=== PATIENT | female | born 1975 | race Caucasian/White ===

== ENCOUNTER 2016-12-27 14:45 | Inpatient (IN) | payer OTHER ==
[~2016-12-27] VITALS: Ht 162.6 cm; Wt 92.7 kg
--- NOTE | ~2016-12-27 | P ---
[facility] [place] [address] [place] [address] PROCEDURE REPORT Name: CECILIA EASON Room #: 210-P [facility] IN M.R.#: [id number] Admission: 12/27/16 Attend Phys: Theodore Chong DO Discharge: 12/30/16 Date of : 79 Report #: [id number] THIS REPORT FOR: //name// CC: Theodore Madsen DATE OF SERVICE: 12/30/2016 PROCEDURE PERFORMED: Colonoscopy with biopsies. HISTORY OF PRESENT ILLNESS: The patient is a 41-year-old female with a history of vulvar cancer, is undergoing radiation therapy and chemotherapy with recent nausea, vomiting and diarrhea. Upper endoscopy was just performed, which showed grade A erosive esophagitis and gastritis with several erosions. Biopsies were obtained. Plan is for colonoscopy. DESCRIPTION OF PROCEDURE: The risks and benefits of the procedure were explained to the patient, those risks including but not limited to bleeding, perforation and the risk of sedation. She understood these risks and gave informed consent. Sedation was given using propofol per anesthesia. Next, a digital rectal exam was initially performed, which showed external hemorrhoids and some perianal skin excoriation, otherwise normal. Next, using a standard [employer] colonoscope, the scope was placed in the patient's anus and advanced under direct vision to the cecum. The overall prep was good. The cecum and ileocecal valve were normal in appearance. Ascending, transverse, descending and sigmoid colon were all normal. Random biopsies were obtained to rule out the possibility of microscopic colitis. The rectal mucosa was normal. On retroflexion, small nonbleeding internal hemorrhoids were noted. At this point, the scope was then withdrawn, and the procedure was terminated. The patient tolerated the procedure well. IMPRESSION: 1. Internal and external hemorrhoids. 2. Otherwise, normal colonoscopy. RECOMMENDATIONS: 1. Await biopsy results. 2. We will advance diet. 3. Continue supportive care. 4. We will add probiotics at this time. [facility] [address] [place] [address] PROCEDURE REPORT Name: CECILIA EASON Room #: 210-P [facility] IN M.R.#: [id number] Admission: 12/27/16 Attend Phys: Theodore Chong DO Discharge: 12/30/16 Date of : 79 Report #: [id number] Thank you for allowing me to participate in her care. By: 1532 2216 Reg Willis MD /nt
--- NOTE | ~2016-12-27 | 2DMMODE ---
[facility] [place] [place] [address] [place] [address] 2 D/M-MODE ECHOCARDIOGRAM Name: CECILIA EASON Room #: 210-P ADM IN M.R.#: [id number] Admission: 12/27/16 Attend Phys: Theodore Chong, Discharge: Date of : 79 Date of Service: 12/28/16 1425 Report #: [id number] THIS REPORT FOR: //name// APPROVED REPORT Study performed: 12/28/2016 12:51:21 EXAM: Comprehensive 2D, Doppler, and color-flow Echocardiogram Patient Location: Bedside Room #: 210 Status: routine BSA: 1.99 HR: 104 bpm BP: 171/86 mmHg Rhythm: Tachycardia Other Information Study Quality: Good Indications Edema, HTN, tachycardia.Hx: DM 2D Dimensions RVDd: 36.14 mm LVEF(%): 70.86 (>50%) IVSd: 12.31 (7-11mm) LVOT Diam: 21.48 (18-24mm) LVDd: 44.43 mm PWd: 10.34 (7-11mm) LVDs: 26.65 (25-40mm) Aortic Root: 27.15 mm Norman's LVEF: 70.86 % Volumes Left Atrial Volume (Systole) Single Plane 4CH: 41.20 mL Single Plane 2CH: 51.37 mL LA ESV Index: 25.00 mL/m2 Aortic Valve AoV Peak Jorge.: 1.43 m/s AO Peak Gr.: 8.22 mmHg LVOT Max P.50 mmHg LVOT Max V: 1.17 m/s HARLEY Vmax: 2.96 cm2 Mitral Valve E/A Ratio: 1.4 MV Decel. Time: 153.[address] [facility] [place] [place] [address] [place] [address] 2 D/M-MODE ECHOCARDIOGRAM Name: CECILIA EASON Room #: 210-[facility] IN ..#: [id number] Admission: 12/27/16 Attend Phys: Theodore Chong, Discharge: Date of : 79 Date of Service: 12/28/16 1425 Report #: [id number] MV E Max Jorge.: 1.49 m/s MV A Jorge.: 1.09 m/s MV PHT: 44.48 ms IVRT: 69.20 ms Pulmonary Valve PV Peak Jorge.: 1.73 m/s PV Peak Gr.: 11.99 mmHg Pulmonary Vein P Vein S: 0.90 m/s P Vein D: 0.51 m/s P Vein S/D Ratio: 1.76 Tricuspid Valve RAP Estimate: 10.00 mmHg Left Ventricle The left ventricle is normal size. Mild concentric left ventricular hypertrophy. The left ventricular systolic function is normal. LVEF is 55-60%. The left ventricular diastolic function is normal. Right Ventricle The right ventricle is normal size. The right ventricular systolic function is normal. Atria The left atrium size is normal. The right atrium size is normal. Aortic Valve The aortic valve is normal in structure. No aortic regurgitation is present. There is no aortic valvular stenosis. Mitral Valve The mitral valve is normal in structure. Trace mitral regurgitation. No evidence of mitral valve stenosis. Tricuspid Valve The tricuspid valve is normal in structure. There is no tricuspid valve regurgitation noted. Pulmonic Valve The pulmonary valve is normal in structure. There is no pulmonic valvular regurgitation. [employer] [facility] [place] [place] [address] [place] [address] 2 D/M-MODE ECHOCARDIOGRAM Name: CECILIA EASON Room #: 210-P ADM IN M.R.#: [id number] Admission: 12/27/16 Attend Phys: Theodore Chong, Discharge: Date of : 79 Date of Service: 12/28/16 1425 Report #: [id number] The aortic root is normal in size. The ascending aorta is normal in size. IVC is normal in size and collapses <50% with inspiration. Pericardium Hemodynamically insignificant pericardial effusion noted. <Conclusion> The left ventricle is normal size. LVEF is 55-60%. The aortic valve is normal in structure. The mitral valve is normal in structure. Trace mitral regurgitation. The tricuspid valve is normal in structure. The pulmonary valve is normal in structure. Hemodynamically insignificant pericardial effusion noted. <ELECTRONICALLY SIGNED> By: Benji Rios MD 12/28/16 1425 1425 1425 Benji Rios MD /INF
--- NOTE | ~2016-12-27 | EKG ---
[place] [address] [facility] [employer] [place] [address] ELECTROCARDIOGRAM REPORT Name: CECILIA EASON Room #: 210-P ADM IN M.R.#: [id number] Admission: 12/27/16 Attend Phys: Theodore Chong DO Discharge: Date of : 79 Report #: [id number] THIS REPORT FOR: //name// [facility] ED Test Date: 2016-12-27 Test Time: 15:08:14 Pat Name: CECILIA EASON Department: Room: 210 Gender: F Emt B: [id number] : 1975 Requested By: Mahad Nguyễn Order Number: [id number] MD: Gregory Yang Measurements Intervals Stuart Rate: 109 P: 40 ND: 145 QRS: -89 QRSD: 104 T: 66 QT: 340 QTc: 458 Interpretive Statements Sinus tachycardia Incomplete RBBB and LAFB RSR' in V1 or V2, right VCD No previous ECG available for comparison Electronically Signed On 12-28-2016 8:21:08 CDT by Gregory Yang [email or web address] <ELECTRONICALLY SIGNED> By: Gregory Yang MD, [facility] 12/28/16 0821 1508 1508 Gregory Yang MD, [facility] /EPI
--- NOTE | ~2016-12-27 | S ---
[facility] [address] [address] SURGICAL PATH RPT PROCEDURE Name: CECILIA EASON Room #: 210-P DIS IN M.R.#: [id number] Admission: 12/27/16 Date of : 79 Discharge: 12/30/16 Report #: [id number] Path Case #: [id number] PATHOLOGY REPORT COLLECTION DATE: 12/30/2016 RECEIVED DATE: 12/30/2016 SUBMITTING PHYS: Dr. Reg Willis OTHER PHYS: Dr. Theodore Espinosa SPECIMEN(S) RECEIVED: A.Bx of duodenal ro sprue B.Bx of gastric ro gastritis C.Bx random colon ro mocroscopic colins * * * * * * * * * * * * FINAL DIAGNOSIS: A. Small bowel mucosa, duodenum rule out sprue, endoscopic biopsy: - Gastric fundic-type mucosa with mild active inflammation, compatible with mild active peptic duodenitis. - Negative for villous blunting, or increase in intraepithelial lymphocytosis. B. Gastric mucosa, rule out gastritis, endoscopic biopsy: - Moderate reactive gastropathy. - Negative for intestinal metaplasia or atrophy. - Negative for Helicobacter pylori. C. Large intestine, random rule out mocroscopic colitis, endoscopic biopsy: - Reactive hyperplastic changes. - Negative for active colitis. - Negative for dysplasia or malignancy. - Negative for collagenous colitis or lymphocytic colitis. COMMENT: Helicobacter pylori immunohistochemical stain performed on block B1-negative. (IUV:mgr; 01/02/2017) PATHOLOGIST: Kami Kim M.D. REPORT ELECTRONICALLY SIGNED BY: Kami Kim M.D. DATE/TIME: 01/02/2017 16:55 * * * * * * * * * * * * GROSS PATHOLOGY: A. Received in formalin labeled "JOSR Toscano of duodenum r/o sprue," are 4 segments of resendiz soft tissue measuring 1.0 x 0.2 x 0.2 [facility] [address] [place] [address] SURGICAL PATH RPT PROCEDURE Name: CECILIA EASON Room #: [address] [place] [address] IN M.R.#: [id number] Admission: 12/27/16 Date of : 79 Discharge: 12/30/16 Report #: [id number] Path Case #: [id number] cm in aggregate dimensions and ranging from 0.3 to 0.4 cm in maximum dimension. The specimen is submitted entirely in cassette A1. B. Received in formalin labeled "JOSR Toscano gastric r/o gastritis," are two segments of resendiz soft tissue measuring 0.8 x 0.4 x 0.3 cm in aggregate dimensions and ranging from 0.4 to 0.5 cm in maximum dimension. The specimen is submitted entirely in cassette B1. C. Received in formalin labeled "JOSR Toscano random: r/o microscopic colitis," are five segments of resendiz soft tissue measuring 1.0 x 0.6 x 0.2 cm in aggregate dimensions and ranging from 0.2 to 0.4 cm in maximum dimension. The specimen is submitted entirely in cassette C1. (TSD; 12/30/2016) CLINICAL HISTORY: EGD, colonoscopy INITIAL CPT CODE(S): A; 24209 B; 47579, 03087 C; 46436 Professional services performed by [facility] at [facility] [address], [place] [address] Technical services performed by [facility] at [address] [place] [address], [address] [address]. [facility] [address] [place] [address] PHONE: [phone] DIRECTOR: Power Bustamante M.D. * * * END OF REPORT * * *
--- NOTE | ~2016-12-27 | P ---
[facility] [place] [address] [address] PROCEDURE REPORT Name: CECILIA EASON Room #: 210-P [facility] IN M.R.#: [id number] Admission: 12/27/16 Attend Phys: Theodore Chong DO Discharge: 12/30/16 Date of : 79 Report #: [id number] THIS REPORT FOR: //name// CC: Tehodore Madsen PROCEDURE PERFORMED: Upper endoscopy with biopsies. HISTORY OF PRESENT ILLNESS: The patient is a 41-year-old female with a history of vulvar cancer, was treated with radiation and chemotherapy recently. She has had lower extremity edema, nausea, vomiting which started after approximately 4th-5th chemo treatment and has persisted since that time. She denies any abdominal pain. She does report diarrhea as well as weight loss. She is scheduled for an EGD and colonoscopy today. DESCRIPTION OF PROCEDURE: The risks and benefits of the procedure were explained to the patient, those risks including but not limited to bleeding, perforation, the risk of sedation. She understood these risks and gave informed consent. Sedation was given using propofol per anesthesia. Next, using a standard [employer] upper endoscope, the scope was placed in the patient's mouth and advanced under direct vision through the esophagus, stomach and into the second portion of the duodenum. The upper and mid esophagus were normal in appearance. In the distal esophagus, there was grade A erosive esophagitis noted. Overall, the gastric mucosa in the fundus and body were normal. However, there were multiple small erosions in the gastric antrum as well as gastritis. Biopsies were obtained to rule out H. pylori. The pylorus was normal and patent. The duodenal bulb, first and second portion were all normal. The scope was then withdrawn and the procedure terminated. The patient tolerated the procedure well. Biopsies of the second portion of the duodenum were also obtained today to rule out sprue. IMPRESSION: 1. Grade A erosive esophagitis. 2. Gastritis with multiple small erosions. 3. Otherwise, normal upper endoscopy. RECOMMENDATIONS: 1. Await biopsy results. 2. Recommend daily PPI. 3. We will proceed with colonoscopy next today. [facility] [address] [place] [address] PROCEDURE REPORT Name: JENAROCECILIA Room #: 210-P DIS IN M.R.#: [id number] Admission: 12/27/16 Attend Phys: Theodore Chong DO Discharge: 12/30/16 Date of : 79 Report #: [id number] Thank you for allowing me to participate in her care. By: 1530 2214 Reg Willis MD /nt
[~2016-12-27 14:45] MED LIST: ALEVE220 MG PO; BIOTIN 800 MCG1 EACH PO; DIABETA 5MG TABL5 MG PO; METFORMIN HCL500 MG PO; UNICOMPLEX M TA1 TA1 PO
[2016-12-27 14:48] VITALS: BP 191/112; BP 204/124
[2016-12-27] MEDS ORDERED: LISINOPRIL5 MG PO (15:07)
[2016-12-27] MEDS ORDERED: MAGOX 400400 MG PO (15:09)
[2016-12-27 15:35] LABS: HEMATOCRIT 25.4 % (37.0-47.0); HEMOGLOBIN 8.8 gm/dL (12.0-15.0); MCHC 34.7 g/dL (28.0-37.0); MCV 89.2 fL (80.0-100.0); PLATELET COUNT 185 thou/uL (150-400); RBC 2.84 mil/uL (4.20-5.00); WBC 5.8 thou/uL (4.0-11.0)
[2016-12-27 15:38] LABS: MANUAL DIFF YES
[2016-12-27 15:49] LABS: ANION GAP 12 mmol/L (7-16); BUN 19 mg/dL (7-18); CHLORIDE 101 mmol/L (98-107); CO2 23 mmol/L (21-32); CREATININE 1.4 mg/dL (0.6-1.0); GLUCOSE 208 mg/dL (74-106); POTASSIUM 4.8 mmol/L (3.5-5.1); SODIUM 136 mmol/L (136-145)
[2016-12-27 15:58] LABS: TROPONIN-I < 0.04 ng/mL (<0.04-0.07)
[2016-12-27 16:02] LABS: ABSOLUTE NEUTROPHILS 4.8 thou/uL (1.4-8.2); ANISOCYTOSIS 1+; POIKILOCYTOSIS SLIGHT; POLYCHROMASIA SLIGHT; TOTAL CELL COUNT 100
[2016-12-27 18:49] VITALS: BP 177/99
[2016-12-27 19:16] VITALS: BP 167/92
[2016-12-27 20:56] VITALS: BP 181/97
[2016-12-27 23:58] VITALS: BP 179/91
[2016-12-28 03:24] LABS: ABSOLUTE NEUTROPHILS 3.9 thou/uL (1.4-8.2); BASOPHILS 0.6 % (0.0-2.0); EOSINOPHILS 0.5 % (0.0-3.0); HEMATOCRIT 24.2 % (37.0-47.0); HEMOGLOBIN 8.6 gm/dL (12.0-15.0); LYMPHOCYTES 12.4 % (24.0-44.0); MCH 31.9 pg (26.0-34.0); MCHC 35.6 g/dL (28.0-37.0); MCV 89.7 fL (80.0-100.0); MONOCYTES 9.3 % (1.0-8.0); PLATELET COUNT 181 thou/uL (150-400); POLYS 77.2 % (36.0-66.0); RDW 21.3 % (10.5-14.5)
[2016-12-28 03:45] LABS: CREATININE 1.3 mg/dL (0.6-1.0); POTASSIUM 4.4 mmol/L (3.5-5.1)
[2016-12-28 03:53] LABS: MANUAL DIFF NO
[2016-12-28 04:22] VITALS: BP 188/99
[2016-12-28 05:39] LABS: URINE BILIRUBIN NEGATIVE (Negative); URINE BLOOD 1+ (Negative); URINE COLOR YELLOW; URINE GLUCOSE-RANDOM* NEGATIVE (Negative); URINE KETONES NEGATIVE (Negative); URINE NITRITE NEGATIVE (Negative); URINE PROTEIN (DIPSTICK) 1+ (Negative); URINE UROBILINOGEN 0.2 E.U./dl (0.2-1.0)
[2016-12-28 06:09] LABS: SQUAMOUS 4-10 Moderate /LPF (0-3)
[2016-12-28 06:10] LABS: BACTERIA None Seen /HPF (None Seen); CASTS None Seen /LPF (None Seen); CRYSTALS None Seen /LPF (None Seen); URINE RBC 0-2 Rare /HPF (0-2); URINE WBC 0-5 Rare /HPF (0-5)
[2016-12-28 07:10] VITALS: BP 171/86
[2016-12-28 09:17] LABS: ANISOCYTOSIS 1+
[2016-12-28 09:18] LABS: POLYCHROMASIA OCCASIONAL
[2016-12-28 11:22] VITALS: BP 178/84
[2016-12-28 14:07] VITALS: BP 155/88
[2016-12-28 14:46] LABS: CALCIUM 9.2 mg/dL (8.5-10.1); CREATININE 1.5 mg/dL (0.6-1.0); MAGNESIUM 1.4 mg/dL (1.8-2.4); POTASSIUM 4.4 mmol/L (3.5-5.1)
[2016-12-28 15:46] VITALS: BP 151/86
[2016-12-28 21:20] VITALS: BP 148/80
[2016-12-29 04:15] VITALS: BP 151/85
[2016-12-29 04:45] LABS: HEMATOCRIT 21.7 % (37.0-47.0); HEMOGLOBIN 7.5 gm/dL (12.0-15.0); MCH 31.3 pg (26.0-34.0); MCHC 34.5 g/dL (28.0-37.0); MCV 90.8 fL (80.0-100.0); PLATELET COUNT 162 thou/uL (150-400); RBC 2.39 mil/uL (4.20-5.00); RDW 21.4 % (10.5-14.5); WBC 4.2 thou/uL (4.0-11.0)
[2016-12-29 04:49] LABS: MANUAL DIFF YES
[2016-12-29 04:57] LABS: CREATININE 1.6 mg/dL (0.6-1.0); MAGNESIUM 1.7 mg/dL (1.8-2.4); POTASSIUM 4.4 mmol/L (3.5-5.1)
[2016-12-29 07:16] LABS: ABSOLUTE NEUTROPHILS 2.9 thou/uL (1.4-8.2); METAMYELOCYTES 1 %; MYELOCYTES 1 %; TOTAL CELL COUNT 100
[2016-12-29 07:18] LABS: ANISOCYTOSIS 2+
[2016-12-29 07:20] LABS: POLYCHROMASIA OCCASIONAL
[2016-12-29 09:00] VITALS: BP 161/82
[2016-12-29 12:00] VITALS: BP 155/83
[2016-12-29 12:39] LABS: % SATURATION 33 % (20-39); IRON 79 ug/dL (50-170); TIBC 238 ug/dL (250-450); UIBC 159 ug/dL
[2016-12-29 13:11] LABS: FOLIC ACID 17.2 ng/mL (8.6-58.9)
[2016-12-29 14:40] LABS: HEMATOCRIT 23.4 % (37.0-47.0); HEMOGLOBIN 8.4 gm/dL (12.0-15.0)
[2016-12-29 16:00] VITALS: BP 129/75
[2016-12-29 19:47] VITALS: BP 141/86
[2016-12-30 03:43] VITALS: BP 135/78
[2016-12-30 08:00] LABS: HEMATOCRIT 22.1 % (37.0-47.0); HEMOGLOBIN 7.7 gm/dL (12.0-15.0); MCH 31.3 pg (26.0-34.0); MCHC 34.9 g/dL (28.0-37.0); MCV 89.7 fL (80.0-100.0); RBC 2.47 mil/uL (4.20-5.00); RDW 20.6 % (10.5-14.5); WBC 4.3 thou/uL (4.0-11.0)
[2016-12-30 08:01] VITALS: BP 152/83
[2016-12-30 08:06] LABS: CALCIUM 9.1 mg/dL (8.5-10.1); CREATININE 1.5 mg/dL (0.6-1.0); POTASSIUM 4.7 mmol/L (3.5-5.1)
[2016-12-30 08:12] LABS: ALBUMIN 2.7 g/dL (3.4-5.0); TOTAL BILIRUBIN 0.2 mg/dL (<0.1-1.0); TOTAL PROTEIN 5.8 g/dL (6.4-8.2)
[2016-12-30] MEDS ORDERED: ALTACE10 MG PO (10:15)
[2016-12-30] MEDS ORDERED: LASIX 40 MG TAB40 M1 PO (10:15)
[2016-12-30] MEDS ORDERED: BYSTOLIC 5 MG5 M1 PO (10:15)
[2016-12-30] MEDS ORDERED: AMLODIPINE BESY10 MG PO (10:15)
[2016-12-30 11:07] VITALS: BP 144/78
[2016-12-30] MEDS ORDERED: PROTONIX40 M1 PO (16:15)
[2016-12-30 16:17] VITALS: BP 144/78
== END 2016-12-30 17:22 | disposition home or self-care (01) | DRG 380 ==
LOC: ER 14:45 → EROBS 18:15 → 2N 18:15
PROVIDERS: Family Medicine; Internal Medicine Gastroenterology; Nurse Practitioner; Nurse Practitioner Adult Health
PROC: 0DB98ZX Excision of Duodenum, Via Natural or Artificial Opening Endoscopic, Diagnostic (ICD-10-PCS; principal; 2016-12-30)
PROC: 0DBN8ZX Excision of Sigmoid Colon, Via Natural or Artificial Opening Endoscopic, Diagnostic (ICD-10-PCS; principal; 2016-12-30)
PROC: 0DBK8ZX Excision of Ascending Colon, Via Natural or Artificial Opening Endoscopic, Diagnostic (ICD-10-PCS; principal; 2016-12-30)
PROC: 0DB68ZX Excision of Stomach, Via Natural or Artificial Opening Endoscopic, Diagnostic (ICD-10-PCS; principal; 2016-12-30)
DX: K22.10 Ulcer of esophagus without bleeding (principal); I50.23 Acute on chronic systolic (congestive) heart failure; K29.70 Gastritis, unspecified, without bleeding; E11.9 Type 2 diabetes mellitus without complications; G51.0 Bell's palsy; F17.210 Nicotine dependence, cigarettes, uncomplicated; I16.0 Hypertensive urgency; Z85.89 Personal history of malignant neoplasm of other organs and systems; D64.9 Anemia, unspecified; Z79.4 Long term (current) use of insulin; I11.0 Hypertensive heart disease with heart failure; Z79.899 Other long term (current) drug therapy; Z71.6 Tobacco abuse counseling; Z90.49 Acquired absence of other specified parts of digestive tract; Z80.51 Family history of malignant neoplasm of kidney
CPT/HCPCS: 10081; 27001; 62110; 70005

== ENCOUNTER 2018-01-24 13:38 | Emergency (ER) | payer OTHER ==
[~2018-01-24] VITALS: Ht 165.1 cm; Wt 90.7 kg
[~2018-01-24 13:38] MED LIST changes: +ALTACE10 MG PO; +AMLODIPINE BESY10 MG PO; +BYSTOLIC 5 MG5 M1 PO; +KEFLEX500 M1 PO; +LASIX 40 MG TAB40 M1 PO; +LISINOPRIL5 MG PO; +MAGOX 400400 MG PO; +NORCO 5-325 TA1 EACH PO; +PROTONIX40 M1 PO
== END 2018-01-24 13:59 | disposition home or self-care (01) ==
LOC: ER 13:38
DX: S81.811D Laceration without foreign body, right lower leg, subsequent encounter (principal); E11.9 Type 2 diabetes mellitus without complications; G51.0 Bell's palsy; F17.210 Nicotine dependence, cigarettes, uncomplicated; Z79.899 Other long term (current) drug therapy; X58.XXXD Exposure to other specified factors, subsequent encounter

== ENCOUNTER → 2019-10-10 | Outpatient (CLI) | payer OTHER | LOC: CAT 08:39 | DX: Z13.6 Encounter for screening for cardiovascular disorders (principal); I25.10 Atherosclerotic heart disease of native coronary artery without angina pectoris; E78.00 Pure hypercholesterolemia, unspecified ==

== ENCOUNTER 2020-04-25 17:16 | Emergency (ER) | payer OTHER ==
[~2020-04-25] VITALS: Ht 162.6 cm; Wt 88.5 kg
[2020-04-25 17:51] LABS: HEMATOCRIT 31.1 % (37.0-47.0); HEMOGLOBIN 10.2 gm/dL (12.0-15.0); MCH 27.3 pg (26.0-34.0); MCHC 32.9 g/dL (28.0-37.0); RBC 3.75 mil/uL (4.20-5.00); RDW 13.3 % (10.5-14.5); WBC 19.8 thou/uL (4.0-11.0)
[2020-04-25 18:18] LABS: CALCIUM 9.4 mg/dL (8.5-10.1); CREATININE 2.8 mg/dL (0.6-1.0)
[2020-04-25 18:19] LABS: POTASSIUM 6.4 mmol/L (3.5-5.1)
[2020-04-25 18:58] LABS: URINE BILIRUBIN NEGATIVE (Negative); URINE BLOOD TRACE (Negative); URINE CLARITY CLEAR; URINE COLOR YELLOW; URINE GLUCOSE-RANDOM* 3+ (Negative); URINE KETONES NEGATIVE (Negative); URINE LEUKOCYTES-REFLEX NEGATIVE (Negative); URINE NITRITE-REFLEX NEGATIVE (Negative); URINE PROTEIN (DIPSTICK) 2+ (Negative); URINE UROBILINOGEN 0.2 E.U./dl (0.2-1.0)
[2020-04-25] MEDS ORDERED: BENICAR40 MG PO (19:03)
[2020-04-25] MEDS ORDERED: ROSUVASTATIN CA10 MG PO (19:03)
[2020-04-25] MEDS ORDERED: KLOR-CON 10 ER10 MEQ PO (19:04)
[2020-04-25 19:05] LABS: SQUAMOUS >10 Many /LPF (0-3)
[2020-04-25 19:06] LABS: BACTERIA-REFLEX 1-9 Few /HPF (None Seen); CASTS None Seen /LPF (None Seen); CRYSTALS None Seen /LPF (None Seen); URINE RBC 0-2 Rare /HPF (0-2); URINE WBC-REFLEX 0-5 Rare /HPF (0-5)
[2020-04-25] MEDS ORDERED: BACTRIM DS TAB1 EACH PO (21:30)
[2020-04-25] MEDS ORDERED: KEFLEX500 M1 PO (21:30)
[2020-04-25] MEDS ORDERED: NORCO 5-325 TA1 EAC2 PO (21:30)
[2020-04-25 21:41] VITALS: BP 177/79
--- NOTE | 2020-04-27 07:43 | EKG ---
[facility] [place] [address] ELECTROCARDIOGRAM REPORT Name: CECILIA EASON Room #: [facility]P [facility]#: [id number] Admission: 04/25/20 Attend Phys: Discharge: 04/25/20 Date of : 79 Report #: [id number] [facility] ED Test Date: 2020-04-25 Test Time: 18:35:04 Pat Name: CECILIA EASON Department: Room: Gender: F Brewer Helper: erica : 1975 Requested By: Otilio Espinosa Order Number: [id number] MD: Ed Wadsworth Measurements Intervals Timber Rate: 70 P: 50 VA: 162 QRS: -62 QRSD: 113 T: 23 QT: 404 QTc: 436 Interpretive Statements Sinus rhythm Incomplete RBBB and LAFB Low voltage, precordial leads Abnormal R-wave progression, late transition Baseline wander in lead(s) V6 Compared to ECG 12/27/2016 15:08:14 Low QRS voltage now present Sinus tachycardia no longer present Electronically Signed On 04-27-2020 7:43:32 CHUCKING MACHINE SET UP OPERATOR by Ed Wadsworth [email or web address] <ELECTRONICALLY SIGNED> By: Ed Wadsworth MD, FAC 04/27/20 0743 1835 1835 Ed Wadsworth MD, [facility] /EPI
== END 2020-04-25 21:42 | disposition home or self-care (01) ==
LOC: ER 17:16
PROVIDERS: Emergency Medicine
DX: L03.317 Cellulitis of buttock (principal); E87.5 Hyperkalemia; M54.5 Low back pain; F17.210 Nicotine dependence, cigarettes, uncomplicated; Z85.44 Personal history of malignant neoplasm of other female genital organs; Z91.14 Patient's other noncompliance with medication regimen; Z98.890 Other specified postprocedural states; Z90.49 Acquired absence of other specified parts of digestive tract; Z79.899 Other long term (current) drug therapy

== ENCOUNTER 2020-05-14 16:48 | Inpatient (IN) | payer OTHER ==
[~2020-05-14] VITALS: Ht 162.6 cm; Wt 88.5 kg
[~2020-05-14 16:48] MED LIST changes: -ACETAMINOPHEN325 M1 PO; -ACIDOPHILUS1 EAC4 PO; -BYSTOLIC10 MG PO; -HYDRALAZINE 5050 MG PO; -HYDROCODON-ACE1 EAC7 PO; -LEVOFLOXACIN750 MG PO; -LOPERAMIDE 2 MG2 M1 PO
[2020-05-14 16:57] VITALS: BP 215/89
[2020-05-14] MEDS ORDERED: BYSTOLIC10 MG PO (17:38)
[2020-05-14 18:16] LABS: CALCIUM 9.3 mg/dL (8.5-10.1); CREATININE 2.3 mg/dL (0.6-1.0); POTASSIUM 4.8 mmol/L (3.5-5.1)
[2020-05-14 18:18] LABS: BASOPHILS 0.8 % (0.0-2.0); HEMATOCRIT 25.4 % (37.0-47.0); HEMOGLOBIN 8.2 gm/dL (12.0-15.0); LYMPHOCYTES 12.3 % (24.0-44.0); MCH 26.7 pg (26.0-34.0); MCHC 32.3 g/dL (28.0-37.0); MCV 82.6 fL (80.0-100.0); MONOCYTES 5.1 % (1.0-8.0); POLYS 78.8 % (36.0-66.0); RBC 3.07 mil/uL (4.20-5.00); RDW 13.8 % (10.5-14.5); WBC 13.5 thou/uL (4.0-11.0)
[2020-05-14 18:22] LABS: ALBUMIN 2.3 g/dL (3.4-5.0); TOTAL BILIRUBIN 0.2 mg/dL (0.2-1.0)
[2020-05-14 18:49] LABS: PLATELET COUNT 331 thou/uL (150-400)
[2020-05-14 19:54] VITALS: BP 183/59
[2020-05-14 20:10] VITALS: BP 153/54
[2020-05-14 20:52] VITALS: BP 184/73
--- NOTE | 2020-05-14 23:04 | NUR ---
ADMITTED TO THE UNIT AT 2152. PT IS A/O X4 AND IS UP WITH SBA TO THE BR. SURGEON AND POLICE STENOGRAPHER MET WITH PT AND HAS GIVEN ORDERS. PT IS ON ROOM AIR AND IS NPO AT MIDNIGHT AWAITING PROCEDURE IN THE AM. SCDS IN PLACE. C/O PAIN AND NAUSEA. PRN PAIN AND NAUSEA MEDICATION GIVEN DIRECTED. STARTED PRESCRIBED FLUIDS AND ABX. AT THIS TIME PT IS LYING IN HER BED AND APPEARS TO BE WATCHING TV. FALL PRECAUTIONS IN PLACE, CALL LIGHT IS WITHIN REACH. WILL CONTINUE TO MONITOR.
[2020-05-15 00:04] VITALS: BP 159/64
[2020-05-15 07:45] VITALS: BP 151/56
[2020-05-15 08:21] VITALS: BP 151/56
--- NOTE | 2020-05-15 14:18 | NUR ---
PT ADMITTED RELATED TO PERIRECTAL ABSCESS. CM REVIEWED CHART AND SPOKE WITH CARE TEAM. CM MET WITH PT AT BEDSIDE THIS DAY. PT IS A&O X4. CM ROLE INTRODUCED. PT INDICATED SHE LIVES IN A TOWNHOUSE WITH HER SPOUSE WITH NO STEPS TO AND 16 INSIDE. 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 PT INDICATED HER PCP IS DR. ALTAGRACIA PALACIOS. PT INDICATED THAT HER SPOUSE IS ABLE TO ASSIST WITH NEEDS UPON DC. PT IS ON IV VANC AND ZOSYN. PT HAVING ABSESS DRAINED THIS DAY. CM TO FOLLOW INDICATED WITH DC PLANNING.
--- NOTE | 2020-05-15 17:32 | NUR ---
Assumed patient care at 0700am. assessment completed, vss. Dr Gee here to see pt, new order noted.received call from preop updates given about pt coming to surgery this afternoon. consent for surgery signed by patient and witnessed by this Rn.patient was NPO till pickup 1545 for surgery in stable condition. will continue to monitor.
[2020-05-15 18:52] VITALS: BP 183/70
[2020-05-15 20:00] VITALS: BP 181/55
--- NOTE | 2020-05-16 05:53 | NUR ---
Pt. rested quietly at intervals during the night when checked on during frequent rounds. Morphine given for c/o carlos rectal pain (see emar) with some relief noted. Also, zofran given for nausea (see emar) with some relief noted. Up to the commode and voiding without difficulty. Carlos pad with small amount of blood present from the rectl area present. Carlos pads changed times three. Rectal packing still intact, but is bloody red.
[2020-05-16 07:08] LABS: GLYCOHEMOGLOBIN (HGB A1C) 14.5 % (4.8-5.6)
[2020-05-16 07:46] VITALS: BP 175/78
[2020-05-16 10:31] LABS: HEMATOCRIT 24.4 % (37.0-47.0); MCH 27.1 pg (26.0-34.0); MCHC 32.5 g/dL (28.0-37.0); MCV 83.4 fL (80.0-100.0); RBC 2.93 mil/uL (4.20-5.00); RDW 14.2 % (10.5-14.5); WBC 9.9 thou/uL (4.0-11.0)
[2020-05-16 10:44] LABS: CALCIUM 9.3 mg/dL (8.5-10.1); POTASSIUM 4.8 mmol/L (3.5-5.1)
[2020-05-16 15:32] VITALS: BP 152/56
--- NOTE | 2020-05-16 17:19 | NUR ---
Assumed pt care at 7am.Assessment completed.Pt in and out of bed byself but c/o perirectal post op pain.Surgical drsg saturated with blood replaced.Dr Ramirez here to see pt,no new order noted.Pt here to visit from lunch till dinner.No verbal c/o.Pt has good appetite.Will continue to monitor.
[2020-05-16 19:33] VITALS: BP 170/59
--- NOTE | 2020-05-17 05:01 | NUR ---
Pt. rested quietly during the night when checked on during frequent rounds. She c/o pain to carlos rectal area during bedside report. Pt. medicated for pain and nausea (see emar) with relief noted. Up to the bedside commode and no heavy bleeding from carlos rectal area.
[2020-05-17 08:15] VITALS: BP 162/57
[2020-05-17 10:16] LABS: CREATININE 2.4 mg/dL (0.6-1.0); POTASSIUM 4.3 mmol/L (3.5-5.1)
--- NOTE | 2020-05-17 14:24 | NUR ---
PT ALERT XS 4 TAKES MEDS PO HAS IV ABT'S DR DODD HERE TO SEE PATIENT STATES WOUND DOES NOT NEED PACKING COVER LIGHTLY. PATIENT TOOK SHOWER . IN ROOM.
[2020-05-17 15:50] VITALS: BP 147/54
[2020-05-17 19:08] VITALS: BP 173/67
[2020-05-18 04:20] VITALS: BP 158/70
[2020-05-18 05:29] LABS: CALCIUM 8.5 mg/dL (8.5-10.1); CREATININE 2.5 mg/dL (0.6-1.0)
--- NOTE | 2020-05-18 06:04 | NUR ---
Assumed care of patient this pm shift. Patient calm and cooperative. Alert and oriented x4. Takes medications whole with thin fluids. Right forearm IV in tact. Dressing changed twice around perirectal area. Patient up to bathroom during the night with 2 loose stools. Assessment shows no signs of acute distress. We will continue to monitor per hospital policy.
--- NOTE | 2020-05-18 07:17 | HC ---
[facility] [place] [address] [place] [address] CONSULTATION Name: CECILIA EASON Room #: 447-P ADM IN M.R.#: [id number] Admission: 05/14/20 Attend Phys: Farhan Snyder MD Discharge: Date of : 79 Report #: [id number] THIS REPORT FOR: cc: Debbie Lebron MD, Paula V. MD Barry, Joseph W. MD ~ DATE OF SERVICE: 05/15/2020 INFECTIOUS DISEASE CONSULTATION ATTENDING PHYSICIAN: Dr. Snyder. REASON FOR EVALUATION: Perineal abscess. HISTORY OF PRESENT ILLNESS: Chart reviewed, patient examined. This 45-year-old woman with history of vulvar carcinoma underwent a course of chemotherapy and 3 episodes of radiation, who has, on 2 prior occasions, developed abscesses in the posterior aspect of the perineum, once on the left and one on the right. These were drained outside the OR. She had noticed, over the last couple of weeks, increasing pain associated with what she describes as her coccyx tailbone. She thought it was directly related to that. She has not had significant fever or chills. No systemic illness. No pulmonary or gastrointestinal-related complaints. She had had an adequate appetite. Due to the severity of it, she ultimately underwent an MRI yesterday, which showed serpiginous perirectal/perianal fluid collection also dissecting through the subcutaneous fat superficial to the medial right gluteal musculature consistent with multifocal abscess. No evidence of bony involvement As a result, she was admitted. She is scheduled to undergo operative debridement this afternoon. She does have significant persistent pain and was unable to put any pressure. She was initiated on therapy with Zosyn and vancomycin. On questioning, she notes previous culture had Staphylococcus she believes. She did experience some degree of mild nausea with it, which she may have been attributed as well to the narcotic analgesics. ALLERGIES: None known. MEDICATIONS: Include vancomycin, famotidine, Zosyn, morphine, and hydrocodone as needed. PAST MEDICAL HISTORY: Diabetes mellitus type 2, history as noted above of vulvar carcinoma, Contreras's palsy, previous perineal abscesses, post appendectomy. SOCIAL HISTORY: No illicit drug use. No ethanol. Does smoke, has a [id number] [address] CONSULTATION Name: CECILIA EASON Room #: 447-P [facility] IN M.R.#: [id number] Admission: 05/14/20 Attend Phys: Farhan Snyder MD Discharge: Date of : 79 Report #: [id number] FAMILY HISTORY: Noncontributory. REVIEW OF SYSTEMS: Otherwise unremarkable 10-point review of systems. PHYSICAL EXAMINATION: GENERAL: She is alert and cooperative. She is in moderate distress. She is lying in a left lateral decubitus position. Appears reasonably well nourished. VITAL SIGNS: Temperature 98.3, pulse 72, respirations 18, and blood pressure 151/56. SKIN: Warm, no rashes. HEENT: Normocephalic. Extraocular muscles intact. NECK: Supple. LUNGS: Slightly diminished, otherwise clear breath sounds. HEART: Regular. I do not appreciate any murmur. ABDOMEN: Soft, nontender, and nondistended. EXTREMITIES: No cyanosis. GENITOURINARY AND RECTAL: Deferred. LABORATORY DATA: Blood cultures sterile thus far. Coronavirus-19 PCR was negative. Procalcitonin less than 0.05. CBC: White count of 13.5, H and H 8.2 and 25.4, and platelets of 331. Lactic acid 0.6. Electrolytes: Sodium 133, potassium 4.8, chloride 99, bicarbonate is 21, anion gap of 12, BUN and creatinine 44 and 2.3, glucose of 368. AST of 13, ALT of 13. Albumin of 2.3, total protein of 7.0. ASSESSMENT: Posterior perineal abscess of uncertain origin, sounds previously like it was a surface of depth with skin type tono, cannot entirely exclude inside out. We will continue combination therapy. Noted some chronic renal insufficiency, likely due to her diabetes mellitus. We will adjust therapy dosing as needed. We will follow up postoperatively and await culture results, likely pare down treatment. We will add incentive spirometry. Would be concerned about other complications as well. Monitor expectantly for evidence of adverse drug effects. <ELECTRONICALLY SIGNED> By: Josiah Nelson MD 05/18/20 0717 1201 1534 Josiah Nelson MD /nt
[2020-05-18 08:03] VITALS: BP 143/64
--- NOTE | 2020-05-18 12:30 | NUR ---
ASSUMED CARE AT 0700. CHANGED DRESSING ON COCCYX WITH ABD DRESSING. SCD HOSE ARE IN PLACE. IV IS INTACT THIS MORNING HOWEVER IV MACHINE CONSTANTLY KEPT BEEPING WITH ERRORS. RESTARTED EVERY 15 MINUTES AND STILL DID NOT WORK. COULDNT FLUSH IV. CALLED IV TEAM. STILL WAITING FOR IV TO COME AND REPLACE IV. PT IS HARD PICK TO START IV. PT HAS 2 ANTIBIOTICS BUT DUE TO UNAVAILABLE ROUTE, IT HAS NOT BEEN STARTED. PT HAS DIARHEA AND WAS GIVEN MEDICATION TO HELP WITH IT. PT STATES THAT IT HELPED A LITTLE BIT. WILL CONTINUE TO MONITOR. CALL LIGHT WITHIN REACH. PT DENIES NAUSEA VOMITTING, SOA.
--- NOTE | 2020-05-18 13:05 | NUR ---
on-GOING ASSESSMENT: CM REVIEWED CHART. PT REMAINS ON IV ANBX. PT IS TO HAVE I AND D OF PERIRECTAL ABESSESS TODAY. CM WILL CONTINUE TO FOLLOW TO ASSIST NEEDED.
[2020-05-18 16:28] VITALS: BP 150/62
[2020-05-18 19:32] VITALS: BP 136/47
[2020-05-19 03:08] VITALS: BP 140/42
--- NOTE | 2020-05-19 05:00 | NUR ---
ASSUMED PT CARE AT SHIFT CHANGE. PT IS A&OX4. PT IS UP AD DEVEN. PT STATES THAT SHE WOULD LIKE TO HAVE HER DRESSING CHANGED. DRESSING CHANGE DONE. PT CALLS OUT APPROPRIATELY. PT DID NOT CALL FOR INSULIN. HOURLY ROUNDING DONE. WILL CONTINUE TO MONITOR.
[2020-05-19 05:30] LABS: CALCIUM 8.8 mg/dL (8.5-10.1); CREATININE 2.4 mg/dL (0.6-1.0); POTASSIUM 4.3 mmol/L (3.5-5.1)
[2020-05-19 07:25] VITALS: BP 130/52
--- NOTE | 2020-05-19 11:14 | NUR ---
ON-GOING ASSESSMENT: CM REVIEWED CHART AND SPOKE WITH PATIENT. PT IS LIKELY DISCHARGE TODAY. CM DISCUSSED HOME HEALTH WITH PATIENT AND SHE FEELS SHE DOES NOT NEED IT. SHE REPORTS IF SHE NEEDS ANY DRESSING CHANGES HER CAN ASSIST. PT REPORTS HAVING NO NEEDS AT DISCHARGE.
[2020-05-19] MEDS ORDERED: LEVOFLOXACIN750 MG PO (12:12)
[2020-05-19] MEDS ORDERED: HYDRALAZINE 5050 MG PO (12:12)
[2020-05-19] MEDS ORDERED: ACIDOPHILUS1 EAC4 PO (12:12)
[2020-05-19] MEDS ORDERED: LOPERAMIDE 2 MG2 M1 PO (12:12)
[2020-05-19] MEDS ORDERED: AMLODIPINE BESY10 MG PO (12:12)
[2020-05-19] MEDS ORDERED: ACETAMINOPHEN325 M1 PO (12:12)
[2020-05-19] MEDS ORDERED: HYDROCODON-ACE1 EAC7 PO (12:12)
--- NOTE | 2020-05-19 12:45 | NUR ---
Received awake on bed. Due medications given as prescribed, able to swallow meds w/o difficulty. On room air. Vital signs stable. On carb controlled diet- tolerating well; no nausea, no vomiting and no abdominal pain noted. On blood sugar monitoring, taken and recorded accordingly; with sliding scale insulin ordered, given as prescribed. On MS, not on telemetry; no complains and signs of chest pain, crushing sensation and heaviness. Assisted in ADLs. Continent of bowel and bladder, able to go to the toilet independently. With NS at 100cc/hr, infusing well at L FA. With carlso rectal wound, dressing in place; chagned today as per pt's request. Complained of pain, due PRN pain meds given as prescribed. Pt seen and examined by Dr Zapata this AM, pt to be discharged; a/w physician to complete his orders. To continue monitoring patient.
[2020-05-19 12:49] VITALS: BP 130/52
== END 2020-05-19 13:32 | disposition home or self-care (01) | DRG 345 ==
LOC: ER 16:48 → 4W 19:10 → EROBS 19:10 → 4W 20:26 → 4S 05-17 07:37
PROVIDERS: Nurse Practitioner Family; Physician Assistant; ADMIT Hospitalist; ATTEND Hospitalist
PROC: 0D9P0ZZ Drainage of Rectum, Open Approach (ICD-10-PCS; principal; 2020-05-15)
DX: K61.1 Rectal abscess (principal); L02.215 Cutaneous abscess of perineum; N17.9 Acute kidney failure, unspecified; L02.31 Cutaneous abscess of buttock; E78.5 Hyperlipidemia, unspecified; K21.9 Gastro-esophageal reflux disease without esophagitis; E11.22 Type 2 diabetes mellitus with diabetic chronic kidney disease; I12.9 Hypertensive chronic kidney disease with stage 1 through stage 4 chronic kidney disease, or unspecified chronic kidney disease; N18.30 Chronic kidney disease, stage 3 unspecified; K61.0 Anal abscess; D63.1 Anemia in chronic kidney disease; E11.21 Type 2 diabetes mellitus with diabetic nephropathy; Z20.822 Contact with and (suspected) exposure to COVID-19; F17.200 Nicotine dependence, unspecified, uncomplicated; G51.0 Bell's palsy; Z79.899 Other long term (current) drug therapy; Z90.49 Acquired absence of other specified parts of digestive tract; Z85.44 Personal history of malignant neoplasm of other female genital organs
CPT/HCPCS: 10040; 10195; 50010; 50101; 50386; 62110; 62900; 70005

== ENCOUNTER → 2020-05-14 | Outpatient (CLI) | payer OTHER ==
[~2020-05-14] MED LIST changes: +ACETAMINOPHEN325 M1 PO; +ACIDOPHILUS1 EAC4 PO; +BACTRIM DS TAB1 EACH PO; +BENICAR40 MG PO; +BYSTOLIC10 MG PO; +HYDRALAZINE 5050 MG PO; +HYDROCODON-ACE1 EAC7 PO; +KLOR-CON 10 ER10 MEQ PO; +LEVOFLOXACIN750 MG PO; +LOPERAMIDE 2 MG2 M1 PO; +NORCO 5-325 TA1 EAC2 PO; +ROSUVASTATIN CA10 MG PO
== END ==
LOC: MRI 09:22
PROVIDERS: ATTEND Family Medicine
DX: M53.3 Sacrococcygeal disorders, not elsewhere classified (principal)

== ENCOUNTER → 2020-08-07 | Outpatient (CLI) | payer OTHER ==
[~2020-08-07] MED LIST changes: +ACETAMINOPHEN325 M1 PO; +ACIDOPHILUS1 EAC4 PO; +BYSTOLIC10 MG PO; +HYDRALAZINE 5050 MG PO; +HYDROCODON-ACE1 EAC7 PO; +LEVOFLOXACIN750 MG PO; +LOPERAMIDE 2 MG2 M1 PO
== END ==
LOC: SJCVCIMAG 11:21
PROVIDERS: ATTEND Internal Medicine Cardiovascular Disease
DX: I10 Essential (primary) hypertension (principal)

== ENCOUNTER → 2020-09-16 | Outpatient (CLI) | payer OTHER | LOC: SJCVCIMAG 07:02 | PROVIDERS: ATTEND Internal Medicine Cardiovascular Disease | DX: I42.9 Cardiomyopathy, unspecified (principal); E11.9 Type 2 diabetes mellitus without complications; I10 Essential (primary) hypertension; F17.210 Nicotine dependence, cigarettes, uncomplicated; Z79.899 Other long term (current) drug therapy; Z88.8 Allergy status to other drugs, medicaments and biological substances ==

== ENCOUNTER → 2021-01-29 | Outpatient (CLI) | payer OTHER | LOC: SJCVCIMAG 09:14 | PROVIDERS: ATTEND Internal Medicine Cardiovascular Disease | DX: I11.0 Hypertensive heart disease with heart failure (principal); I50.9 Heart failure, unspecified; E11.9 Type 2 diabetes mellitus without complications; R06.00 Dyspnea, unspecified; F10.10 Alcohol abuse, uncomplicated; Z79.899 Other long term (current) drug therapy ==

== ENCOUNTER → 2021-03-25 | Outpatient (CLI) | payer OTHER | LOC: SJCVCIMAG 07:04 | PROVIDERS: ATTEND Internal Medicine Cardiovascular Disease | DX: I45.10 Unspecified right bundle-branch block (principal); I25.10 Atherosclerotic heart disease of native coronary artery without angina pectoris; R06.00 Dyspnea, unspecified; I13.2 Hypertensive heart and chronic kidney disease with heart failure and with stage 5 chronic kidney disease, or end stage renal disease; N18.6 End stage renal disease; I50.9 Heart failure, unspecified; I73.9 Peripheral vascular disease, unspecified; Z87.891 Personal history of nicotine dependence; Z79.899 Other long term (current) drug therapy; Z88.8 Allergy status to other drugs, medicaments and biological substances ==